=== PATIENT | male | born 1985 | race Caucasian/White ===

== ENCOUNTER → 2017-04-27 | Outpatient (REF) | payer OTHER ==
[2017-04-27 23:53] LABS: INFLUENZA A AMPLIFICATION POSITIVE (NEGATIVE); INFLUENZA B AMPLIFICATION NEGATIVE (NEGATIVE); RSV AMPLIFICATION NEGATIVE (NEGATIVE)
== END ==
LOC: M LAB REF 09:45
DX: J11.1 Influenza due to unidentified influenza virus with other respiratory manifestations (principal)

== ENCOUNTER 2020-10-02 14:53 | Emergency (ER) | payer MEDICAID, OTHER ==
[~2020-10-02] VITALS: Ht 182.9 cm; Wt 102.7 kg
[~2020-10-02 14:53] MED LIST: LITH300T2 OR; NEXI20CA OR; PAXI20TA OR; PAXI40TA OR; PRIL40CA OR
[2020-10-02] MEDS ORDERED: OMEP-173 (15:05)
[2020-10-02] MEDS ORDERED: KETOROLAC 30 MG/ML 1ML VIAL IV ONE (17:05)
[2020-10-02] MEDS ORDERED: methocarbamoL 750 MG TAB PO ONE (17:05)
[2020-10-02] MEDS ORDERED: KETOROLAC 60MG 2ML VIAL IM ONE (17:10)
[2020-10-02] MEDS ORDERED: CYCL-707 PO (18:05)
[2020-10-02 18:14] VITALS: BP 142/87
== END 2020-10-02 18:15 | disposition home or self-care (01) ==
LOC: M ED 14:53
DX: M54.2 Cervicalgia (principal); S46.912A Strain of unspecified muscle, fascia and tendon at shoulder and upper arm level, left arm, initial encounter; X58.XXXA Exposure to other specified factors, initial encounter; Y92.89 Other specified places as the place of occurrence of the external cause; K21.9 Gastro-esophageal reflux disease without esophagitis; Z79.899 Other long term (current) drug therapy; F12.20 Cannabis dependence, uncomplicated
CPT/HCPCS: 96372; 99283; J1885

== ENCOUNTER → 2021-01-23 | Outpatient (CLI) | payer OTHER ==
[~2021-01-23] MED LIST changes: +CYCL-707 PO; +OMEP-218
--- NOTE | 2021-01-23 14:14 | REP ---
INDICATION: LUMBAR RADICULOPATHY. COMPARISON: None. TECHNIQUE: Six views of the lumbar spine including flexion and extension lateral views were obtained. FINDINGS: There is maintenance of the normal lumbar lordosis. The intervertebral disc spaces of the lumbar spine are preserved. There are no compression fractures. There is no spondylolisthesis. There is no instability with flexion and extension. The SI joints are normal. The perivertebral soft tissues are normal. IMPRESSION: Normal x-ray evaluation of the lumbar spine. There is no instability with flexion and extension. <Electronically signed by Min Rankin > 01/23/21 [id number]
== END ==
LOC: M SOG 13:53
PROVIDERS: ATTEND Orthopaedic Surgery Sports Medicine
DX: M54.16 Radiculopathy, lumbar region (principal)